=== PATIENT | male | born 2000 | race Caucasian/White ===

== ENCOUNTER 2024-03-14 19:22 | Emergency (ER) | payer OTHER ==
[~2024-03-14] VITALS: Ht 167.6 cm; Wt 104.3 kg
[2024-03-14 20:39] VITALS: BP 141/94; TEMP 99.1
[2024-03-14 21:04] VITALS: O2SAT 95
== END 2024-03-14 21:04 | disposition home or self-care (01) ==
LOC: ER 19:37
DX: R05.9 Cough, unspecified (principal); F55.8 Abuse of other non-psychoactive substances; J45.909 Unspecified asthma, uncomplicated; F32.A Depression, unspecified; R07.89 Other chest pain